=== PATIENT | female | born 1955 | race Two or more races ===

== ENCOUNTER → 2017-03-11 | Day surgery (SDC) | payer MEDICAID ==
[~2017-03-11] VITALS: Ht 152.4 cm; Wt 74.8 kg
[~2017-03-11] MED LIST: FENTANYL CITRATE/PF 50MCG/ML 2ML VIAL ONE; IBUP-2028 PO; LABETALOL HCL 20MG/4ML CARPUJECT IV PRN; LACTATED RINGERS 1,000 ML IV SCH; MEPERIDINE HCL/PF 25MG/ML CPJ IV PRN; MIDAZOLAM HCL 2 MG/2 ML VIAL ONE; NADO20TA12 PO; ONDANSETRON HCL 4MG/2ML VIAL IV PRN; PROPOFOL 200MG/20ML VIAL IV ONE; SIMETHICONE 40 MG/0.6 ML 30ML ONE
[2017-03-11 13:01] LABS: BASOPHILS % 0.6 % (0.0-2.0); CARBON DIOXIDE 27 mEq/L (21-32); CHLORIDE 106 mEq/L (98-107); EOSINOPHILS % 1.5 % (0.0-5.0); HEMATOCRIT. 36.6 % (36.0-48.0); HEMOGLOBIN. 12.4 g/dL (12.0-16.0); LYMPHOCYTES % 31.7 % (20.0-50.0); MEAN CORPUSCULAR HEMOGLOBIN 30.5 pg (28.0-32.0); MEAN PLATELET VOLUME 8.2 fl (7.4-10.4); MONOCYTES % 8.5 % (2.0-8.0); NEUTROPHILS % 57.7 % (40.0-76.0); PLATELET 70 x1000/uL (130-400); RED BLOOD CELL COUNT 4.07 mill/uL (4.2-5.4); RED CELL DISTRIBUTION WIDTH 14.9 % (11.6-14.6)
[2017-03-11 13:23] LABS: INR 1.2; PARTIAL THROMBOPLASTIN TIME 28.4 sec (23.4-31.0); PROTHROMBIN TIME 12.6 sec (9.4-11.6)
[2017-03-11 15:00] VITALS: BP 157/76
== END | disposition home or self-care (01) ==
LOC: OR 11:07
PROVIDERS: ATTEND Internal Medicine Gastroenterology
DX: I85.00 Esophageal varices without bleeding (principal); K29.60 Other gastritis without bleeding; K76.6 Portal hypertension; K31.89 Other diseases of stomach and duodenum; K74.60 Unspecified cirrhosis of liver; E11.9 Type 2 diabetes mellitus without complications; E66.9 Obesity, unspecified; Z98.890 Other specified postprocedural states
CPT/HCPCS: 36415; 43239; 43244; 80048; 85025; 85610; 85730; 86850; 86900; 86901; 88305; 88312; 88313; 93005; J2175; J2250; J3010; J2704

== ENCOUNTER 2017-04-15 10:03 | Day surgery (SDC) | payer MEDICAID ==
[~2017-04-15] VITALS: Ht 160 cm; Wt 73.5 kg
[~2017-04-15 10:03] MED LIST changes: -FENTANYL CITRATE/PF 50MCG/ML 2ML VIAL ONE; -LABETALOL HCL 20MG/4ML CARPUJECT IV PRN; -LACTATED RINGERS 1,000 ML IV SCH; -MEPERIDINE HCL/PF 25MG/ML CPJ IV PRN; -MIDAZOLAM HCL 2 MG/2 ML VIAL ONE; -ONDANSETRON HCL 4MG/2ML VIAL IV PRN; -PROPOFOL 200MG/20ML VIAL IV ONE; -SIMETHICONE 40 MG/0.6 ML 30ML ONE
[2017-04-15] MEDS ORDERED: LACTATED RINGERS 1,000 ML IV SCH (11:30)
[2017-04-15] MEDS ORDERED: PROPOFOL 200MG/20ML VIAL IV ONE ×2 (12:02→12:22)
[2017-04-15] MEDS ORDERED: ONDANSETRON HCL 4MG/2ML VIAL IV PRN (12:45)
[2017-04-15] MEDS ORDERED: MORPHINE SULFATE 4 MG/ML CPJ (NOT FOR IM USE) IV NR (17:15)
[2017-04-15] MEDS ORDERED: METOCLOPRAMIDE HCL 10MG/2ML VIAL IV NR (17:15)
[2017-04-15] MEDS ORDERED: SUCRALFATE 1 G/10 ML UDC PO NR (17:15)
[2017-04-15] MEDS ORDERED: PANTOPRAZOLE SODIUM 40 MG/VIAL IV NR (17:15)
[2017-04-15 17:25] VITALS: BP 178/89
== END 2017-04-15 20:45 | disposition home or self-care (01) ==
LOC: OR 10:03
PROVIDERS: ATTEND Internal Medicine Gastroenterology
DX: I85.00 Esophageal varices without bleeding (principal); K76.6 Portal hypertension; K31.89 Other diseases of stomach and duodenum; K74.60 Unspecified cirrhosis of liver; Z98.890 Other specified postprocedural states; Z79.899 Other long term (current) drug therapy
CPT/HCPCS: 43244; C9113; J2270; J2405; J2765; J2704; J7120

== ENCOUNTER → 2017-05-13 | Day surgery (SDC) | payer MEDICAID ==
[~2017-05-13] MED LIST changes: +ALBU18HF2 IH; +FLUT16SP15 BOTHNSTRLS; +LACTATED RINGERS 1,000 ML IV SCH; +PANT40TA4 PO; +SUCR1TAB PO
[2017-05-13 10:25] LABS: BASOPHILS % 0.8 % (0.0-2.0); EOSINOPHILS % 1.5 % (0.0-5.0); HEMATOCRIT. 35.5 % (36.0-48.0); LYMPHOCYTES % 27.5 % (20.0-50.0); MEAN CORPUSCULAR HEMOGLOBIN 29.7 pg (28.0-32.0); MEAN CORPUSCULAR VOLUME 88.3 fL (81.0-99.0); MEAN PLATELET VOLUME 8.4 fl (7.4-10.4); NEUTROPHILS % 61.2 % (40.0-76.0); PLATELET 77 x1000/uL (130-400); RED BLOOD CELL COUNT 4.03 mill/uL (4.2-5.4); RED CELL DISTRIBUTION WIDTH 14.9 % (11.6-14.6)
[2017-05-13 10:36] LABS: INR 1.2; PARTIAL THROMBOPLASTIN TIME 30.1 sec (23.4-31.0); PROTHROMBIN TIME 12.5 sec (9.4-11.6)
[2017-05-13 10:38] LABS: CHLORIDE 107 mEq/L (98-107)
== END ==
LOC: OR 09:26
PROVIDERS: ATTEND Internal Medicine Gastroenterology
DX: K22.8 Other specified diseases of esophagus (principal); Z53.8 Procedure and treatment not carried out for other reasons; R00.1 Bradycardia, unspecified; Z90.89 Acquired absence of other organs; Z98.890 Other specified postprocedural states
CPT/HCPCS: 36415; 80048; 85025; 85610; 85730; 93005; J7120

== ENCOUNTER 2017-09-23 08:02 | Day surgery (SDC) | payer MEDICAID ==
[~2017-09-23] VITALS: Ht 160 cm; Wt 72.6 kg
[~2017-09-23 08:02] MED LIST changes: -LACTATED RINGERS 1,000 ML IV SCH
[2017-09-23] MEDS ORDERED: SODIUM CHLORIDE 0.9% 1,000 ML IV SCH (09:40)
[2017-09-23] MEDS ORDERED: MIDAZOLAM HCL 5 MG/5 ML VIAL ONE (11:10)
[2017-09-23] MEDS ORDERED: PROPOFOL 200MG/20ML VIAL IV ONE (11:10)
[2017-09-23] MEDS ORDERED: LIDOCAINE HCL/PF 1% 10 MG/ML 5ML VIAL ONE (11:15)
[2017-09-23] MEDS ORDERED: GLYCOPYRROLATE 0.2 MG/ML 2ML VIAL ONE (11:23)
[2017-09-23] MEDS ORDERED: HYDROMORPHONE HCL/PF 2MG/ML CPJ IV PRN (12:30)
[2017-09-23] MEDS ORDERED: ONDANSETRON HCL 4MG/2ML VIAL IV PRN (12:30)
[2017-09-23] MEDS ORDERED: SODIUM CHLORIDE 0.9% 1,000 ML IV ONE (13:15)
== END 2017-09-23 12:40 | disposition home or self-care (01) ==
LOC: OR 08:02
PROVIDERS: ATTEND Internal Medicine Gastroenterology
DX: K31.89 Other diseases of stomach and duodenum (principal); K76.6 Portal hypertension; I85.00 Esophageal varices without bleeding; J45.909 Unspecified asthma, uncomplicated; E66.3 Overweight; K21.9 Gastro-esophageal reflux disease without esophagitis; M19.90 Unspecified osteoarthritis, unspecified site; Z90.49 Acquired absence of other specified parts of digestive tract; Z98.890 Other specified postprocedural states; Z79.899 Other long term (current) drug therapy
CPT/HCPCS: 43235; 82962; J2250; J3490; J7030; J2704

== ENCOUNTER 2018-11-17 09:49 | Day surgery (SDC) | payer MEDICARE, MEDICAID ==
[~2018-11-17] VITALS: Ht 160 cm; Wt 73.5 kg
[~2018-11-17 09:49] MED LIST changes: -IBUP-2028 PO
[2018-11-17] MEDS ORDERED: LACTATED RINGERS 1,000 ML IV SCH (10:30)
[2018-11-17] MEDS ORDERED: SIMETHICONE 40 MG/0.6 ML 30ML ONE (11:13)
[2018-11-17] MEDS ORDERED: FENTANYL CITRATE/PF 50MCG/ML 2ML VIAL ONE (13:10)
[2018-11-17] MEDS ORDERED: MIDAZOLAM HCL 2 MG/2 ML VIAL ONE (13:10)
[2018-11-17] MEDS ORDERED: DIPHENHYDRAMINE 50MG/ML VIAL ONE (13:11)
[2018-11-17] MEDS ORDERED: PROPOFOL 200MG/20ML VIAL IV ONE (13:11)
[2018-11-17] MEDS ORDERED: LIDOCAINE HCL 1% 20ML VIAL (Pyxis) INJ ONE (13:11)
== END 2018-11-17 17:00 | disposition home or self-care (01) ==
LOC: OR 09:49
PROVIDERS: ATTEND Internal Medicine Gastroenterology
DX: K29.50 Unspecified chronic gastritis without bleeding (principal); I85.00 Esophageal varices without bleeding; K31.89 Other diseases of stomach and duodenum; I10 Essential (primary) hypertension; J45.909 Unspecified asthma, uncomplicated; M19.90 Unspecified osteoarthritis, unspecified site; K74.60 Unspecified cirrhosis of liver; K29.80 Duodenitis without bleeding; Z79.899 Other long term (current) drug therapy; Z98.890 Other specified postprocedural states
CPT/HCPCS: 43239; 43244; 88305; 88312; 88313; J1200; J2250; J2704; J3010; J3490

== ENCOUNTER 2019-01-12 10:12 | Day surgery (SDC) | payer MEDICARE, MEDICAID ==
[~2019-01-12] VITALS: Ht 160 cm; Wt 73.5 kg
[~2019-01-12 10:12] MED LIST changes: -PANT40TA4 PO; -SUCR1TAB PO
[2019-01-12] MEDS ORDERED: LACTATED RINGERS 1,000 ML IV SCH (11:00)
[2019-01-12] MEDS ORDERED: KETAMINE HCL 50 MG/ML 10ML ONE (12:07)
[2019-01-12] MEDS ORDERED: SIMETHICONE 40 MG/0.6 ML 30ML ONE (12:10)
[2019-01-12] MEDS ORDERED: PROPOFOL 200MG/20ML VIAL IV ONE (12:12)
[2019-01-12] MEDS ORDERED: SODIUM CHLORIDE 0.9% 10ML VIAL ONE (12:12)
== END 2019-01-12 16:30 | disposition home or self-care (01) ==
LOC: OR 10:12
PROVIDERS: ATTEND Internal Medicine Gastroenterology
DX: I85.10 Secondary esophageal varices without bleeding (principal); K76.6 Portal hypertension; K74.60 Unspecified cirrhosis of liver; E11.9 Type 2 diabetes mellitus without complications; M19.90 Unspecified osteoarthritis, unspecified site; J45.909 Unspecified asthma, uncomplicated; K31.89 Other diseases of stomach and duodenum; Z79.899 Other long term (current) drug therapy; Z98.890 Other specified postprocedural states
CPT/HCPCS: 43235; J2704; J3490

== ENCOUNTER → 2019-03-09 | Outpatient (CLI) | payer MEDICARE, MEDICAID | END | disposition home or self-care (01) | LOC: US 08:43 | PROVIDERS: ATTEND Internal Medicine Gastroenterology | DX: K76.0 Fatty (change of) liver, not elsewhere classified (principal); R16.1 Splenomegaly, not elsewhere classified; Z90.49 Acquired absence of other specified parts of digestive tract | CPT/HCPCS: 76700 ==

== ENCOUNTER → 2021-09-11 | Outpatient (CLI) | payer MEDICARE, MEDICAID ==
[~2021-09-11] MED LIST changes: -NADO20TA12 PO; +NADO20TA3 PO
== END | disposition home or self-care (01) ==
LOC: US 09:34
PROVIDERS: ATTEND Internal Medicine Gastroenterology
DX: R16.2 Hepatomegaly with splenomegaly, not elsewhere classified (principal); K74.60 Unspecified cirrhosis of liver
CPT/HCPCS: 76700

== ENCOUNTER → 2021-12-18 | Outpatient (CLI) | payer MEDICARE, MEDICAID ==
[~2021-12-18] MED LIST changes: +IOHEXOL-300 100 ML BOTTLE ONE
== END | disposition home or self-care (01) ==
LOC: CT 08:46
PROVIDERS: ATTEND Internal Medicine Gastroenterology
DX: K57.30 Diverticulosis of large intestine without perforation or abscess without bleeding (principal); K43.9 Ventral hernia without obstruction or gangrene; J98.11 Atelectasis; R16.1 Splenomegaly, not elsewhere classified; K74.60 Unspecified cirrhosis of liver; J98.4 Other disorders of lung; Z90.49 Acquired absence of other specified parts of digestive tract
CPT/HCPCS: 74178; Q9967

== ENCOUNTER → 2022-02-05 | Outpatient (CLI) | payer MEDICARE, MEDICAID ==
[~2022-02-05] MED LIST changes: +GADOTERATE MEGLUMINE 5 MMOL/10 ML VIAL IV ONE; -IOHEXOL-300 100 ML BOTTLE ONE
== END | disposition home or self-care (01) ==
LOC: MRI 09:37
PROVIDERS: ATTEND Internal Medicine Gastroenterology
DX: K74.60 Unspecified cirrhosis of liver (principal); R16.1 Splenomegaly, not elsewhere classified; K46.9 Unspecified abdominal hernia without obstruction or gangrene; D64.9 Anemia, unspecified; Z90.49 Acquired absence of other specified parts of digestive tract
CPT/HCPCS: 74183; A9577

== ENCOUNTER → 2022-08-28 | Outpatient (CLI) | payer MEDICARE, MEDICAID ==
[~2022-08-28] MED LIST changes: -GADOTERATE MEGLUMINE 5 MMOL/10 ML VIAL IV ONE
== END | disposition home or self-care (01) ==
LOC: US 08:36
PROVIDERS: ATTEND Internal Medicine Gastroenterology
DX: K74.60 Unspecified cirrhosis of liver (principal); R59.1 Generalized enlarged lymph nodes; R79.89 Other specified abnormal findings of blood chemistry; Z90.49 Acquired absence of other specified parts of digestive tract
CPT/HCPCS: 76700